=== PATIENT | male | born 1990 | race Caucasian/White ===

== ENCOUNTER → 2017-08-12 | Outpatient (CLI) | payer BC | LOC: ZCOL.LAB 15:51 | DX: Z11.2 Encounter for screening for other bacterial diseases (principal); Z86.14 Personal history of Methicillin resistant Staphylococcus aureus infection ==

== ENCOUNTER 2017-08-20 10:54 | Day surgery (SDC) | payer BC ==
[~2017-08-20] VITALS: Ht 175.3 cm; Wt 80.7 kg
[2017-08-20 11:27] VITALS: BP 114/63; PULSE 73; TEMP 98
[2017-08-20] MEDS ORDERED: AMITRIPTYLINE H25 M1 PO (11:35)
[2017-08-20] MEDS ORDERED: FIORICET 325 MG1 TA1 PO (11:37)
[2017-08-20 15:45] VITALS: BP 112/70; PULSE 57; TEMP 97.9
[2017-08-20] MEDS ORDERED: NORCO 325 MG-7.1 TAB PO (15:53)
[2017-08-20] MEDS ORDERED: PHENERGAN 25 TA25 MG PO (15:53)
[2017-08-20] MEDS ORDERED: CEPHALEXIN500 M1 PO (15:54)
[2017-08-20 16:00] VITALS: BP 118/70; PULSE 57
[2017-08-20 16:15] VITALS: BP 119/71; PULSE 56
[2017-08-20 16:31] VITALS: BP 122/67; PULSE 55; TEMP 97.6
== END 2017-08-20 17:22 | disposition home or self-care (01) ==
LOC: SDCO 10:54
DX: M25.872 Other specified joint disorders, left ankle and foot (principal); Q68.8 Other specified congenital musculoskeletal deformities; Z88.6 Allergy status to analgesic agent; Z86.14 Personal history of Methicillin resistant Staphylococcus aureus infection; Z68.26 Body mass index [BMI] 26.0-26.9, adult; Z98.890 Other specified postprocedural states
CPT/HCPCS: J0690; J1100; J1885; J2250; J2405; J2704; J2710; J2795; J7120

== ENCOUNTER → 2019-04-04 | Outpatient (CLI) | payer BC ==
[~2019-04-04] MED LIST: AMITRIPTYLINE H25 M1 PO; CEPHALEXIN500 M1 PO; FIORICET 325 MG1 TA1 PO; NORCO 325 MG-7.1 TAB PO; PHENERGAN 25 TA25 MG PO
== END ==
LOC: ZCOL.LAB 11:15
DX: Z01.812 Encounter for preprocedural laboratory examination (principal); Z86.14 Personal history of Methicillin resistant Staphylococcus aureus infection

== ENCOUNTER 2019-04-27 09:26 | Day surgery (SDC) | payer BC ==
[2019-04-27] VITALS (8 sets, daily range): BP systolic 109–124; BP diastolic 52–66; PULSE 69–113; TEMP 98–99
[~2019-04-27] VITALS: Ht 175.3 cm; Wt 72.5 kg
[2019-04-27] MEDS ORDERED: NORCO 325 MG-7.1 TAB PO ×2 (12:27→15:57)
[2019-04-27] MEDS ORDERED: PHENERGAN 25 TA25 MG PO (15:56)
[2019-04-27] MEDS ORDERED: CEPHALEXIN500 M1 PO (15:56)
== END 2019-04-27 17:23 | disposition home or self-care (01) ==
LOC: SDCO 09:26
DX: S43.102A Unspecified dislocation of left acromioclavicular joint, initial encounter (principal); M75.52 Bursitis of left shoulder; M19.90 Unspecified osteoarthritis, unspecified site; Z86.14 Personal history of Methicillin resistant Staphylococcus aureus infection; Z88.8 Allergy status to other drugs, medicaments and biological substances; Z88.6 Allergy status to analgesic agent; Z90.49 Acquired absence of other specified parts of digestive tract
CPT/HCPCS: A4619; C1713; J0171; J0330; J2250; J2405; J2550; J2704; J2795; J3010

== ENCOUNTER 2019-07-26 05:26 | Day surgery (SDC) | payer BC ==
[~2019-07-26] VITALS: Ht 175.3 cm; Wt 71.0 kg
[2019-07-26 06:16] VITALS: BP 116/61; PULSE 55; TEMP 97.8
[2019-07-26] MEDS ORDERED: FIORICET 325 MG1 TA1 PO (06:23)
[2019-07-26] MEDS ORDERED: NORCO 325 MG-7.1 TAB PO (06:25)
[2019-07-26 07:45] VITALS: BP 107/80; PULSE 60; TEMP 97.6
--- NOTE | 2019-07-26 07:45 | NUR ---
Pt returned from OR to [facility]. A&O. VSS-see flowsheet. Daughter and present in room and Dr Butler spoke with them post surgery. Pt denies pain or nausea. Requested a muffin and pepsi. Aquacel dressing clean, dry and intact to left shoulder. Left arm in sling. Side rails up and call light in reach.
[2019-07-26 08:00] VITALS: BP 118/75; PULSE 61
--- NOTE | 2019-07-26 08:00 | NUR ---
Pt able to wiggle left hand finger, unable to move left arm. Denies feeling to left upper arm. Extremity warm, good capillary refill and color.
[2019-07-26 08:15] VITALS: BP 116/72; PULSE 65
[2019-07-26 08:30] VITALS: BP 129/74; PULSE 58
--- NOTE | 2019-07-26 08:30 | NUR ---
Pt reports sharp, soreness to left shoulder. Given pain medication-see MAR. Instructed to ice and elevate frequently as tolerates.
--- NOTE | 2019-07-26 08:50 | NUR ---
Pt states pain is tolerable and ready to discharge. IV removed, pressure dressing applied. Pt up to void and dressed. Discharge instructions completed, pt and verbalized understanding. Taken via wheelchair to private vehicle for dc home with driving. Pts left arm in sling.
== END 2019-07-26 08:50 | disposition home or self-care (01) ==
LOC: SDCO 05:26
DX: T81.40XA Infection following a procedure, unspecified, initial encounter (principal); S43.122D Dislocation of left acromioclavicular joint, 100%-200% displacement, subsequent encounter; Z88.8 Allergy status to other drugs, medicaments and biological substances; M19.90 Unspecified osteoarthritis, unspecified site; Z86.14 Personal history of Methicillin resistant Staphylococcus aureus infection; Z90.49 Acquired absence of other specified parts of digestive tract
CPT/HCPCS: A4619; J2250; J2405; J2704; J7120